=== PATIENT | male | born 1970 | race Caucasian/White ===

== ENCOUNTER 2020-07-25 08:24 | Emergency (ER) | payer OTHER ==
[~2020-07-25] VITALS: Ht 175.3 cm; Wt 109.8 kg
[2020-07-25] MEDS ORDERED: COZAAR50 MG (09:20)
[2020-07-25] MEDS ORDERED: JANUMET 50-5001 EACH (09:20)
== END 2020-07-25 18:15 | disposition home or self-care (01) ==
LOC: ER 08:24
DX: N13.2 Hydronephrosis with renal and ureteral calculous obstruction (principal); R10.31 Right lower quadrant pain